=== PATIENT | male | born 1940 | race Caucasian/White ===

== ENCOUNTER 2022-10-06 13:21 | Emergency (ER) | payer MEDICARE, OTHER ==
[~2022-10-06] VITALS: Ht 165.1 cm; Wt 78.6 kg
[~2022-10-06 13:21] MED LIST: ACET-2119 PO; ASPI-1071 PO; CARV3.122 PO; LISI2.5T14 PO; NITR0.4T51 SL; ROSU20TA2 PO; TICA90TA2 PO
[2022-10-06 13:28] VITALS: BP 119/72
[2022-10-06] MEDS ORDERED: DICL100G30 TOP (15:03)
== END 2022-10-06 15:24 | disposition home or self-care (01) ==
LOC: ER 13:22
DX: M25.511 Pain in right shoulder (principal); Z79.899 Other long term (current) drug therapy; W19.XXXA Unspecified fall, initial encounter; Y93.89 Activity, other specified; Y92.89 Other specified places as the place of occurrence of the external cause; Y99.8 Other external cause status
CPT/HCPCS: 73030; 99283

== ENCOUNTER 2023-07-13 16:47 | Inpatient (IN) | payer OTHER ==
[~2023-07-13] VITALS: Ht 167.6 cm; Wt 71.8 kg
[~2023-07-13 16:47] MED LIST changes: +DICL100G59 TOP; +LACT1CAP60 PO
[2023-07-13 18:28] LABS: BASOPHILS # (AUTO) 0.1 X10'3 (0-0.2); EOSINOPHILS # (AUTO) 0.2 X10'3 (0-0.9); HEMOGLOBIN 11.4 g/dl (14.0-17.9); RED BLOOD COUNT 3.82 X10'6 (4.70-6.10); RED CELL DISTRIBUTION WIDTH 16.3 % (11.5-14.5)
[2023-07-13 18:30] LABS: BILIRUBIN,URINE NEGATIVE (Neg); CLARITY,URINE CLEAR (Clear); COLOR,URINE YELLOW (Yellow); GLUCOSE, URINE NEGATIVE (Neg); KETONES,URINE NEGATIVE (Neg); LEUKOCYTE ESTERASE ,URINE NEGATIVE (Neg); NITRITES, URINE NEGATIVE (Neg); OCCULT BLOOD,URINE TRACE-INTACT (Neg); PH,URINE 6.5 (4.8-8.0); PROTEIN,URINE TRACE mg/dl (Neg)
[2023-07-13 18:30] LABS: BASOPHILS % (AUTO) 1.3 % (0-1); EOSINOPHILS % (AUTO) 4.6 % (0-6); HEMATOCRIT 33.7 % (42.0-52.0); LYMPHOCYTES # (AUTO) 0.9 X10'3 (1.1-4.8); LYMPHOCYTES % (AUTO) 17.6 % (21-51); MEAN CORPUSCULAR HEMOGLOBIN 29.7 PG (27.0-31.0); MEAN CORPUSCULAR HGB CONC 33.7 g/dL (33.0-36.5); MEAN CORPUSCULAR VOLUME 88.1 FL (78-98); MONOCYTES # (AUTO) 0.4 X10'3 (0-0.9); MONOCYTES % (AUTO) 9.1 % (2-12); NEUTROPHILS # (AUTO) 3.3 X10'3 (1.8-7.7); NEUTROPHILS % (AUTO) 67.4 % (42-75); PLATELET COUNT 143 X10'3 (140-440); WHITE BLOOD COUNT 4.9 X10'3 (4.5-11.0)
[2023-07-13 18:35] LABS: UA COLLECTION TYPE URINAL
[2023-07-13 18:36] LABS: HYALINE CASTS 0-3 /LPF (NEGATIVE)
[2023-07-13 18:37] LABS: SQUAMOUS EPITHELIAL CELL,UR NONE SEEN /LPF (FEW)
[2023-07-13 18:39] LABS: INR 1.1 INR; PROTHROMBIN TIME 11.8 SECONDS (9.0-12.0)
[2023-07-13 18:40] LABS: BACTERIA,URINE FEW /HPF (Neg)
[2023-07-13 18:50] LABS: CREATINE KINASE 110 U/L (39-308); LIPASE 27 U/L (16-77); PRO BRAIN NATRIURETIC PEPTIDE 12234 PG/ML (0-450)
[2023-07-13 19:16] LABS: ETHANOL < 10 MG/DL (<10)
[2023-07-13] MEDS ORDERED: CARV6.253 PO (19:48)
[2023-07-13] MEDS ORDERED: LOSA100T58 PO (19:48)
[2023-07-13] MEDS ORDERED: ROSU10TA28 PO (19:51)
[2023-07-13] MEDS ORDERED: ZINC220T3 PO (19:53)
[2023-07-13 19:54] LABS: ALBUMIN 3.3 G/DL (3.4-5.0); ANION GAP 8 (8-16); BLOOD UREA NITROGEN 21 MG/DL (7-18); BUN/CREATININE RATIO 13.1 (10.0-20.0); CALCIUM 8.2 MG/DL (8.5-10.1); CHLORIDE 106 MMOL/L (99-107); GLUCOSE 112 MG/DL (70-104); POTASSIUM 3.4 MMOL/L (3.5-5.1); SODIUM 141 MMOL/L (135-145); eCRCL 32 ML/MIN; eGFR 42 ML/MIN
[2023-07-13] MEDS ORDERED: TRAM50TA2 PO (19:54)
[2023-07-13] MEDS ORDERED: magnesium hydroxide 30ml (MOM) UD suspension PO PRN (20:30)
[2023-07-13] MEDS ORDERED: magnesium Cl slow-release 64mg tablet PO PRN (20:30)
[2023-07-13] MEDS ORDERED: magnesium 4gm in 100ml NS 100 ML IV PRN (20:30)
[2023-07-13] MEDS ORDERED: ondansetron/PF 4mg/2ml inj IV PRN (20:30)
[2023-07-13] MEDS ORDERED: acetaminophen 325mg tablet PO PRN (20:30)
[2023-07-13] MEDS ORDERED: magnesium 2GM in 50ml NS 50 ML IV PRN (20:30)
[2023-07-13] MEDS ORDERED: potassium Cl 40MEQ/1/2NS 520ml 520 ML IV PRN (20:30)
[2023-07-13] MEDS ORDERED: PERFLUTREN PROTEIN-A MICROSPHR (Optison) 0.22 MG/ML 3ML VIAL IV PRN (20:30)
[2023-07-13] MEDS ORDERED: mag hydrox/Alum hydrox/simeth 30ml oral suspension PO PRN (20:30)
[2023-07-13] MEDS ORDERED: traMADol 50MG tablet PO PRN (20:30)
[2023-07-13] MEDS: carVEDilol 3.125mg tablet PO ONE (20:42)
[2023-07-13] MEDS: furosemide 10 MG/1 ML 10ml inj IV ONE (20:54)
[2023-07-13] MEDS: potassium Cl 20 mEq SR tablet PO PRN (20:54)
[2023-07-14] VITALS (7 sets, daily range): BP systolic 137–179; BP diastolic 66–99; PULSE 61–65; RESP 14–18; TEMP 97.5–98.6; O2SAT 92–99
[2023-07-14 07:44] LABS: BASOPHILS # (AUTO) 0.1 X10'3 (0-0.2); BASOPHILS % (AUTO) 1.1 % (0-1); EOSINOPHILS # (AUTO) 0.3 X10'3 (0-0.9); EOSINOPHILS % (AUTO) 4.8 % (0-6); HEMATOCRIT 35.2 % (42.0-52.0); HEMOGLOBIN 11.7 g/dl (14.0-17.9); LYMPHOCYTES % (AUTO) 18.6 % (21-51); MEAN CORPUSCULAR HEMOGLOBIN 29.3 PG (27.0-31.0); MEAN CORPUSCULAR HGB CONC 33.3 g/dL (33.0-36.5); MEAN CORPUSCULAR VOLUME 88.1 FL (78-98); MEAN PLATELET VOLUME 10.4 FL (7.4-10.4); MONOCYTES # (AUTO) 0.5 X10'3 (0-0.9); MONOCYTES % (AUTO) 9.4 % (2-12); NEUTROPHILS # (AUTO) 3.6 X10'3 (1.8-7.7); NEUTROPHILS % (AUTO) 66.1 % (42-75); PLATELET COUNT 152 X10'3 (140-440); RED CELL DISTRIBUTION WIDTH 16.2 % (11.5-14.5); WHITE BLOOD COUNT 5.5 X10'3 (4.5-11.0)
[2023-07-14 07:56] LABS: APTT 28 SECONDS (22-32); INR 1.1 INR
[2023-07-14 08:08] LABS: ALANINE AMINOTRANSFERASE 10 U/L (12-78); ALBUMIN 3.4 G/DL (3.4-5.0); ALBUMIN/GLOBULIN RATIO 0.9 (1.1-1.5); ALKALINE PHOSPHATASE 106 IU/L (46-116); ANION GAP 6 (8-16); ASPARTATE AMINO TRANSFERASE 13 U/L (10-37); BILIRUBIN,TOTAL 1.1 MG/DL (0.1-1.0); BLOOD UREA NITROGEN 18 MG/DL (7-18); BUN/CREATININE RATIO 12.5 (10.0-20.0); CALCIUM 8.5 MG/DL (8.5-10.1); CHLORIDE 105 MMOL/L (99-107); CREATININE 1.44 MG/DL (0.60-1.10); GLUCOSE 82 MG/DL (70-104); MAGNESIUM 1.9 MG/DL (1.5-2.4); PHOSPHORUS 2.4 MG/DL (2.3-4.5); SODIUM 140 MMOL/L (135-145); TOTAL CARBON DIOXIDE 28.6 MMOL/L (24-32); eCRCL 36 ML/MIN; eGFR 47 ML/MIN
[2023-07-14 08:18] LABS: POTASSIUM 2.9 MMOL/L (3.5-5.1)
[2023-07-14] MEDS: K and/or MAG REPLACEMENT MC SCH (08:37)
[2023-07-14] MEDS: docusate sod 100mg capsule PO SCH (11:02)
[2023-07-14] MEDS: ROSUVASTATIN CALCIUM 5 MG TABLET PO SCH (11:03)
[2023-07-14] MEDS: carvedilol 6.25mg tablet PO SCH (11:03)
[2023-07-14] MEDS: losartan 50mg tablet PO SCH (11:03)
[2023-07-14] MEDS: pantoprazole 40 MG vial IV SCH (11:03)
[2023-07-14] MEDS: aspirin 81mg, enteric-coated 1 TAB TABLET.DR PO SCH (11:03)
[2023-07-14] MEDS: furosemide 40mg/4ml inj IV SCH (11:04)
[2023-07-14] MEDS: heparin, porcine 5000 units/ml vial SQ SCH (11:04)
[2023-07-14] MEDS: potassium Cl 20 mEq SR tablet PO PRN (11:15)
[2023-07-15] VITALS (7 sets, daily range): BP systolic 130–153; BP diastolic 59–70; PULSE 63–66; RESP 14–18; TEMP 97.5–98.5; O2SAT 97–99
[2023-07-15 07:17] LABS: BASOPHILS # (AUTO) 0.1 X10'3 (0-0.2); EOSINOPHILS # (AUTO) 0.3 X10'3 (0-0.9); LYMPHOCYTES # (AUTO) 1.2 X10'3 (1.1-4.8); NEUTROPHILS # (AUTO) 3.9 X10'3 (1.8-7.7)
[2023-07-15 07:20] LABS: EOSINOPHILS % (AUTO) 5.2 % (0-6); HEMATOCRIT 35.2 % (42.0-52.0); HEMOGLOBIN 11.8 g/dl (14.0-17.9); LYMPHOCYTES % (AUTO) 19.3 % (21-51); MEAN CORPUSCULAR HEMOGLOBIN 29.8 PG (27.0-31.0); MEAN CORPUSCULAR HGB CONC 33.6 g/dL (33.0-36.5); MEAN CORPUSCULAR VOLUME 88.7 FL (78-98); MEAN PLATELET VOLUME 10.5 FL (7.4-10.4); MONOCYTES # (AUTO) 0.6 X10'3 (0-0.9); MONOCYTES % (AUTO) 10.6 % (2-12); NEUTROPHILS % (AUTO) 63.9 % (42-75); PLATELET COUNT 152 X10'3 (140-440); RED BLOOD COUNT 3.97 X10'6 (4.70-6.10); RED CELL DISTRIBUTION WIDTH 16.6 % (11.5-14.5); WHITE BLOOD COUNT 6.1 X10'3 (4.5-11.0)
[2023-07-15 07:23] LABS: APTT 28 SECONDS (22-32); INR 1.1 INR; PROTHROMBIN TIME 11.9 SECONDS (9.0-12.0)
[2023-07-15 07:43] LABS: ALANINE AMINOTRANSFERASE 11 U/L (12-78); ALBUMIN/GLOBULIN RATIO 0.9 (1.1-1.5); ALKALINE PHOSPHATASE 94 IU/L (46-116); ANION GAP 10 (8-16); ASPARTATE AMINO TRANSFERASE 10 U/L (10-37); BILIRUBIN,TOTAL 0.8 MG/DL (0.1-1.0); BLOOD UREA NITROGEN 22 MG/DL (7-18); BUN/CREATININE RATIO 14.2 (10.0-20.0); CALCIUM 8.8 MG/DL (8.5-10.1); CHLORIDE 106 MMOL/L (99-107); CREATININE 1.55 MG/DL (0.60-1.10); GLUCOSE 98 MG/DL (70-104); MAGNESIUM 2.2 MG/DL (1.5-2.4); PHOSPHORUS 2.5 MG/DL (2.3-4.5); POTASSIUM 4.1 MMOL/L (3.5-5.1); SODIUM 143 MMOL/L (135-145); TOTAL CARBON DIOXIDE 26.8 MMOL/L (24-32); TOTAL PROTEIN 6.5 G/DL (6.4-8.2); eCRCL 33 ML/MIN; eGFR 43 ML/MIN
[2023-07-15] MEDS: LORazepam 2 mg/ml vial IV ONE (13:45)
[2023-07-15] MEDS ORDERED: pantoprazole 40mg Tablet.DR PO SCH (14:24)
[2023-07-16 06:00] VITALS: BP 155/86; PULSE 66; RESP 16; TEMP 97.1; O2SAT 95
[2023-07-16 07:22] LABS: BASOPHILS # (AUTO) 0.1 X10'3 (0-0.2); EOSINOPHILS # (AUTO) 0.4 X10'3 (0-0.9); LYMPHOCYTES # (AUTO) 1.3 X10'3 (1.1-4.8); MEAN CORPUSCULAR HGB CONC 33.5 g/dL (33.0-36.5); MONOCYTES # (AUTO) 0.7 X10'3 (0-0.9)
[2023-07-16 07:24] LABS: BASOPHILS % (AUTO) 1.2 % (0-1); EOSINOPHILS % (AUTO) 6.3 % (0-6); HEMATOCRIT 37.8 % (42.0-52.0); HEMOGLOBIN 12.6 g/dl (14.0-17.9); LYMPHOCYTES % (AUTO) 22.1 % (21-51); MEAN CORPUSCULAR HEMOGLOBIN 29.8 PG (27.0-31.0); MEAN CORPUSCULAR VOLUME 89.1 FL (78-98); MEAN PLATELET VOLUME 10.4 FL (7.4-10.4); MONOCYTES % (AUTO) 12.3 % (2-12); NEUTROPHILS # (AUTO) 3.5 X10'3 (1.8-7.7); NEUTROPHILS % (AUTO) 58.1 % (42-75); PLATELET COUNT 164 X10'3 (140-440); RED BLOOD COUNT 4.24 X10'6 (4.70-6.10); RED CELL DISTRIBUTION WIDTH 16.3 % (11.5-14.5)
[2023-07-16 07:29] LABS: APTT 30 SECONDS (22-32); INR 1.1 INR; PROTHROMBIN TIME 11.8 SECONDS (9.0-12.0)
[2023-07-16 07:36] LABS: ALANINE AMINOTRANSFERASE 8 U/L (12-78); ALBUMIN 3.2 G/DL (3.4-5.0); ALBUMIN/GLOBULIN RATIO 0.9 (1.1-1.5); ALKALINE PHOSPHATASE 93 IU/L (46-116); ANION GAP 5 (8-16); ASPARTATE AMINO TRANSFERASE 13 U/L (10-37); BILIRUBIN,TOTAL 0.8 MG/DL (0.1-1.0); BLOOD UREA NITROGEN 26 MG/DL (7-18); BUN/CREATININE RATIO 16.7 (10.0-20.0); CALCIUM 8.9 MG/DL (8.5-10.1); CHLORIDE 102 MMOL/L (99-107); CREATININE 1.56 MG/DL (0.60-1.10); GLUCOSE 97 MG/DL (70-104); PHOSPHORUS 3.3 MG/DL (2.3-4.5); POTASSIUM 3.8 MMOL/L (3.5-5.1); SODIUM 137 MMOL/L (135-145); TOTAL CARBON DIOXIDE 29.9 MMOL/L (24-32); TOTAL PROTEIN 6.9 G/DL (6.4-8.2); eCRCL 33 ML/MIN; eGFR 43 ML/MIN
[2023-07-16 08:00] VITALS: RESP 16; O2SAT 95
[2023-07-16 08:06] VITALS: BP_SYST 155; PULSE 66
[2023-07-16] MEDS: pantoprazole 40mg Tablet.DR PO SCH (08:07)
== END 2023-07-16 15:35 | disposition home health service (06) | DRG 280 ==
LOC: ER 16:48 → ED HOLD 20:32 → ORTHO 4S 07-14 00:45
PROVIDERS: ADMIT Internal Medicine Sleep Medicine; ATTEND Family Medicine
DX: I13.0 Hypertensive heart and chronic kidney disease with heart failure and stage 1 through stage 4 chronic kidney disease, or unspecified chronic kidney disease (principal); I21.A1 Myocardial infarction type 2; I50.33 Acute on chronic diastolic (congestive) heart failure; N17.9 Acute kidney failure, unspecified; E78.5 Hyperlipidemia, unspecified; S46.011A Strain of muscle(s) and tendon(s) of the rotator cuff of right shoulder, initial encounter; I25.10 Atherosclerotic heart disease of native coronary artery without angina pectoris; N18.9 Chronic kidney disease, unspecified; F40.240 Claustrophobia; S46.012A Strain of muscle(s) and tendon(s) of the rotator cuff of left shoulder, initial encounter; I07.1 Rheumatic tricuspid insufficiency; E87.6 Hypokalemia; W01.0XXA Fall on same level from slipping, tripping and stumbling without subsequent striking against object, initial encounter; Y92.098 Other place in other non-institutional residence as the place of occurrence of the external cause; I25.2 Old myocardial infarction; Z79.82 Long term (current) use of aspirin; Z79.899 Other long term (current) drug therapy; Y93.89 Activity, other specified; Y99.8 Other external cause status
CPT/HCPCS: 36415; 70450; 71045; 71250; 72125; 73030; 73221; 74176; 80048; 80053; 80320; 81001; 82550; 82948; 83690; 83735; 83880; 84100; 84132; 84145; 84484; 85025; 85610; 85730; 87081; 87088; 93005; 93306; 97161; 97530; 99285; A4349; A6590; C9113; G0378; J1644; J1940; J2060

== ENCOUNTER 2023-08-08 23:53 | Emergency (ER) | payer OTHER ==
[~2023-08-08] VITALS: Ht 167.6 cm; Wt 76.4 kg
[~2023-08-08 23:53] MED LIST changes: -CARV3.122 PO; +CARV6.253 PO; -DICL100G59 TOP; -LISI2.5T14 PO; +LOSA100T58 PO; +ROSU10TA28 PO; -ROSU20TA2 PO; -TICA90TA2 PO; +TRAM50TA2 PO; +ZINC220T3 PO
[2023-08-09 00:33] LABS: EOSINOPHILS # (AUTO) 0.3 X10'3 (0-0.9); HEMOGLOBIN 11.9 g/dl (14.0-17.9); LYMPHOCYTES # (AUTO) 0.9 X10'3 (1.1-4.8); MONOCYTES # (AUTO) 0.4 X10'3 (0-0.9); NEUTROPHILS # (AUTO) 3.1 X10'3 (1.8-7.7); RED BLOOD COUNT 3.93 X10'6 (4.70-6.10)
[2023-08-09 00:34] LABS: BASOPHILS # (AUTO) 0.1 X10'3 (0-0.2); BASOPHILS % (AUTO) 1.1 % (0-1); EOSINOPHILS % (AUTO) 5.5 % (0-6); HEMATOCRIT 35.5 % (42.0-52.0); LYMPHOCYTES % (AUTO) 18.8 % (21-51); MEAN CORPUSCULAR HEMOGLOBIN 30.4 PG (27.0-31.0); MEAN CORPUSCULAR HGB CONC 33.6 g/dL (33.0-36.5); MEAN CORPUSCULAR VOLUME 90.5 FL (78-98); MEAN PLATELET VOLUME 9.9 FL (7.4-10.4); MONOCYTES % (AUTO) 9.1 % (2-12); NEUTROPHILS % (AUTO) 65.5 % (42-75); PLATELET COUNT 127 X10'3 (140-440); RED CELL DISTRIBUTION WIDTH 15.7 % (11.5-14.5); WHITE BLOOD COUNT 4.8 X10'3 (4.5-11.0)
[2023-08-09 00:55] LABS: ALBUMIN 3.8 G/DL (3.4-5.0); ANION GAP 4 (8-16); BLOOD UREA NITROGEN 15 MG/DL (7-18); BUN/CREATININE RATIO 10.8 (10.0-20.0); CALCIUM 9.2 MG/DL (8.5-10.1); CHLORIDE 108 MMOL/L (99-107); CREATININE 1.39 MG/DL (0.60-1.10); GLUCOSE 109 MG/DL (70-104); POTASSIUM 3.8 MMOL/L (3.5-5.1); PRO BRAIN NATRIURETIC PEPTIDE 10869 PG/ML (0-450); SODIUM 141 MMOL/L (135-145); TOTAL CARBON DIOXIDE 28.8 MMOL/L (24-32); eCRCL 37 ML/MIN; eGFR 49 ML/MIN
[2023-08-09] MEDS ORDERED: HYDROchlorothiazide 25mg tablet PO ONE (02:45)
[2023-08-09] MEDS: HYDROchlorothiazide 12.5mg capsule PO ONE (03:19)
[2023-08-09 03:27] VITALS: BP 165/85; PULSE 61; RESP 16; O2SAT 97
== END 2023-08-09 03:32 | disposition home or self-care (01) ==
LOC: ER 23:54
DX: I10 Essential (primary) hypertension (principal); I25.10 Atherosclerotic heart disease of native coronary artery without angina pectoris; I25.2 Old myocardial infarction
CPT/HCPCS: 36415; 71045; 80048; 83880; 84484; 85025; 93005; 99285

== ENCOUNTER 2023-10-26 11:20 | Emergency (ER) | payer BC, OTHER ==
[~2023-10-26] VITALS: Ht 167.6 cm; Wt 63.6 kg
[~2023-10-26 11:20] MED LIST changes: +HYDR12.55 PO; -LACT1CAP60 PO; +MELO-102 PO; -ROSU10TA28 PO; +ROSU10TA72 PO; +calcium chloride 100 MG/1 ML inj IV ONE
== END 2023-10-26 18:09 ==
LOC: ER 11:21
DX: I46.9 Cardiac arrest, cause unspecified (principal); E11.22 Type 2 diabetes mellitus with diabetic chronic kidney disease; I12.9 Hypertensive chronic kidney disease with stage 1 through stage 4 chronic kidney disease, or unspecified chronic kidney disease; N18.9 Chronic kidney disease, unspecified; I25.10 Atherosclerotic heart disease of native coronary artery without angina pectoris; I25.2 Old myocardial infarction; Z79.1 Long term (current) use of non-steroidal anti-inflammatories (NSAID); Z79.82 Long term (current) use of aspirin; Z79.899 Other long term (current) drug therapy; Z98.890 Other specified postprocedural states; Z86.73 Personal history of transient ischemic attack (TIA), and cerebral infarction without residual deficits
CPT/HCPCS: 31500; 82948; 92950; 99285; J0171; J3490